=== PATIENT | male | born 1940 | race Hispanic/Latino ===

== ENCOUNTER 2024-07-16 18:50 | Inpatient (IN) | payer MEDICARE ==
[~2024-07-16] VITALS: Ht 170.2 cm; Wt 79.4 kg
[2024-07-16] MEDS ORDERED: SODIUM CHLORIDE FLUSH 10 ML SYR INJ PRN ×2 (19:30→21:15)
[2024-07-16 19:42] LABS: BASOPHILS # (AUTO) 0.1 (0.0-0.1); BASOPHILS % 0.5 % (0.0-1.0); EOSINOPHILS # (AUTO) 0.2 (0.0-0.4); EOSINOPHILS % 2.3 % (0.0-6.0); LYMPHOCYTES # (AUTO) 2.7 (1.0-3.2); LYMPHOCYTES % 28.5 % (18.0-39.1); MEAN CORPUSCULAR HEMOGLOBIN 32.8 pg (28-32); MEAN CORPUSCULAR HGB CONC 30.8 g/dL (31-35); MEAN CORPUSCULAR VOLUME 106.7 fL (81-99); MONOCYTES # (AUTO) 0.4 (0.2-0.8); MONOCYTES % 4.7 % (4.4-11.3); NEUTROPHILS # (AUTO) 5.9 (2.1-6.9); NEUTROPHILS % 62.8 % (38.7-80.0); PLATELET COUNT 214 x10e3/uL (140-360); RED BLOOD COUNT 1.95 x10e6/uL (4.3-5.7); RED CELL DISTRIBUTION WIDTH 15.6 % (11.7-14.4); WHITE BLOOD COUNT 9.41 x10e3/uL (4.8-10.8)
[2024-07-16 19:48] LABS: HEMOGLOBIN 6.4 g/dL (14.0-18.0)
[2024-07-16 19:49] LABS: HEMATOCRIT 20.8 % (38.2-49.6)
[2024-07-16 19:55] LABS: ANION GAP 13.3 mmol/L (8-16); BILIRUBIN,TOTAL 0.4 mg/dL (0.2-1.2); CALCIUM 8.8 mg/dL (8.4-10.2); CREATININE, SERUM 1.58 mg/dL (0.72-1.25); POTASSIUM 4.3 mmol/L (3.5-5.1); TOTAL PROTEIN 5.9 g/dL (6.5-8.1)
[2024-07-16] MEDS: SODIUM CHLORIDE 0.9% 1000ML 1,000 ML IV ONE (20:02)
[2024-07-16] MEDS: ONDANSETRON HCL INJ 2MG/ML 2ML 2 MG/ML VIAL IV STA (20:02)
[2024-07-16 20:07] LABS: INR 1.58; PARTIAL THROMBOPLASTIN TIME 34.4 seconds (23.8-35.5); PROTHROMBIN TIME 19.6 seconds (11.9-14.5)
[2024-07-16] MEDS ORDERED: DEXTROSE 50% SYRINGE 50 ML IV PRN (21:15)
[2024-07-16] MEDS ORDERED: ONDANSETRON HCL INJ 2MG/ML 2ML 2 MG/ML VIAL IV PRN (21:15)
[2024-07-16] MEDS: DIGOXIN INJ 0.25 MG/ML 2 ML AMP IV ONE (21:45)
[2024-07-16 22:07] LABS: BILIRUBIN,URINE NEGATIVE (NEGATIVE); CLARITY,URINE CLOUDY (CLEAR); COLOR,URINE YELLOW (YELLOW); GLUCOSE, URINE NEGATIVE (NEGATIVE); KETONES,URINE NEGATIVE (NEGATIVE); LEUKOCYTE ESTERASE ,URINE 1+ (NEGATIVE); NITRITE,URINE NEGATIVE (NEGATIVE); PH,URINE 5.5 (5 - 7); PROTEIN,URINE DIPSTICK NEGATIVE (NEGATIVE); URINE UROBILINOGEN 0.2 mg/dL (0.2 - 1); WBC,URINE (MAN) >50 /HPF (0-5)
[2024-07-16 22:08] LABS: BACTERIA,URINE MANY /HPF; EPITHELIAL CELLS,URINE FEW /LPF; RBC,URINE 0-5 /HPF (0-5); RENAL EPITHELIAL CELLS,URINE FEW
[2024-07-16] MEDS: SODIUM CHLORIDE 0.9% 250ML 250 ML IV ONE (22:15)
[2024-07-17] VITALS (11 sets, daily range): BP systolic 104–132; BP diastolic 74–76; PULSE 74–117; RESP 12–20; TEMP 97.7–98.6; O2SAT 97–100
[2024-07-17 09:02] LABS: BASOPHILS # (AUTO) 0.1 (0.0-0.1); BASOPHILS % 0.5 % (0.0-1.0); EOSINOPHILS # (AUTO) 0.3 (0.0-0.4); EOSINOPHILS % 2.8 % (0.0-6.0); HEMATOCRIT 26.6 % (38.2-49.6); HEMOGLOBIN 8.4 g/dL (14.0-18.0); LYMPHOCYTES # (AUTO) 2.2 (1.0-3.2); LYMPHOCYTES % 22.5 % (18.0-39.1); MEAN CORPUSCULAR HGB CONC 31.6 g/dL (31-35); MEAN CORPUSCULAR VOLUME 98.2 fL (81-99); MONOCYTES # (AUTO) 0.4 (0.2-0.8); MONOCYTES % 4.4 % (4.4-11.3); NEUTROPHILS # (AUTO) 6.7 (2.1-6.9); NEUTROPHILS % 68.2 % (38.7-80.0); PLATELET COUNT 146 x10e3/uL (140-360); RED BLOOD COUNT 2.71 x10e6/uL (4.3-5.7); RED CELL DISTRIBUTION WIDTH 19.1 % (11.7-14.4); WHITE BLOOD COUNT 9.85 x10e3/uL (4.8-10.8)
[2024-07-17 09:48] LABS: ALBUMIN 2.9 g/dL (3.5-5.0); ALBUMIN/GLOBULIN RATIO 1.1 (0.8-2.0); ANION GAP 12.4 mmol/L (8-16); CALCIUM 8.3 mg/dL (8.4-10.2); CREATININE, SERUM 1.1 mg/dL (0.72-1.25); POTASSIUM 4.4 mmol/L (3.5-5.1); TOTAL PROTEIN 5.6 g/dL (6.5-8.1)
[2024-07-17] MEDS ORDERED: METOPROLOL SUCC50 MG PO (10:34)
[2024-07-17] MEDS ORDERED: VITAMIN D250 MC1 PO (10:34)
[2024-07-17] MEDS ORDERED: ROSUVASTATIN CA20 MG PO (10:34)
[2024-07-17] MEDS ORDERED: DIGOXIN125 MCG PO (10:34)
[2024-07-17] MEDS ORDERED: FINASTERIDE5 MG PO (10:34)
[2024-07-17] MEDS ORDERED: ALLOPURINOL100 MG PO (10:34)
[2024-07-17] MEDS ORDERED: SOLIQUA 100 UNIT3 ML SQ (10:34)
[2024-07-17] MEDS ORDERED: XARELTO20 MG PO (10:34)
[2024-07-17] MEDS ORDERED: ICOSAPENT ETHYL1 GM PO (10:34)
[2024-07-17] MEDS ORDERED: FLOMAX0.4 MG PO (10:34)
[2024-07-17] MEDS ORDERED: DIOVAN160 MG PO (10:34)
[2024-07-17] MEDS: INSULIN REGULAR, HUMAN 100 UNIT/1 ML SQ SCH (11:30)
[2024-07-17] MEDS ORDERED: DEXTROSE 50% SYRINGE 50 ML IV PRN ×2 (12:30→14:00)
[2024-07-17] MEDS ORDERED: BENZONATATE 100 MG CAP PO PRN (12:30)
[2024-07-17] MEDS ORDERED: HYDRALAZINE HCL 20 MG/ML VIAL IV PRN (12:30)
[2024-07-17] MEDS ORDERED: LIDOCAINE 4% PATCH TP PRN (12:30)
[2024-07-17] MEDS ORDERED: DIPHENHYDRAMINE HCL 25 MG CAP PO PRN (12:30)
[2024-07-17] MEDS ORDERED: DOCUSATE SODIUM 100 MG CAP PO PRN (12:30)
[2024-07-17] MEDS ORDERED: POTASSIUM CHLORIDE 20 MEQ TAB CR PO PRN (12:30)
[2024-07-17] MEDS ORDERED: SIMETHICONE 80 MG CHEW PO PRN (12:30)
[2024-07-17] MEDS ORDERED: ALBUTEROL/IPRATROPIUM 3 ML NEB NEB PRN (12:30)
[2024-07-17] MEDS: INSULIN LISPRO 100 UNIT/1 ML 3ML VIAL SQ SCH (16:25)
[2024-07-17] MEDS ORDERED: MELATONIN 5 MG TABLET PO PRN (21:00)
[2024-07-17] MEDS: INSULIN GLARGINE 100 UNITS/ML VIAL SQ SCH (21:00)
[2024-07-17] MEDS ORDERED: NON-FORMULARY MEDICATION (Rosuvastatin Calcium 20 MG) PO SCH (21:00)
[2024-07-17] MEDS: CRESTOR 10MG PO SCH (21:02)
[2024-07-18] VITALS (11 sets, daily range): BP systolic 99–126; BP diastolic 48–69; PULSE 72–115; RESP 18–20; TEMP 97.3–98; O2SAT 98–100
[2024-07-18 06:42] LABS: BASOPHILS # (AUTO) 0.1 (0.0-0.1); BASOPHILS % 0.5 % (0.0-1.0); EOSINOPHILS # (AUTO) 0.2 (0.0-0.4); EOSINOPHILS % 2.3 % (0.0-6.0); HEMOGLOBIN 8.2 g/dL (14.0-18.0); LYMPHOCYTES # (AUTO) 1.8 (1.0-3.2); LYMPHOCYTES % 17.5 % (18.0-39.1); MEAN CORPUSCULAR HEMOGLOBIN 31.2 pg (28-32); MEAN CORPUSCULAR HGB CONC 31.5 g/dL (31-35); MEAN CORPUSCULAR VOLUME 98.9 fL (81-99); MONOCYTES # (AUTO) 0.6 (0.2-0.8); MONOCYTES % 5.5 % (4.4-11.3); NEUTROPHILS # (AUTO) 7.6 (2.1-6.9); NEUTROPHILS % 72.8 % (38.7-80.0); PLATELET COUNT 165 x10e3/uL (140-360); RED BLOOD COUNT 2.63 x10e6/uL (4.3-5.7); RED CELL DISTRIBUTION WIDTH 19.9 % (11.7-14.4); WHITE BLOOD COUNT 10.39 x10e3/uL (4.8-10.8)
[2024-07-18 07:01] LABS: ANION GAP 11.6 mmol/L (8-16); CALCIUM 8.5 mg/dL (8.4-10.2); CHOL/HDL RATIO 5.6 (3.9-4.7); CREATININE, SERUM 1.1 mg/dL (0.72-1.25); POTASSIUM 4.6 mmol/L (3.5-5.1)
[2024-07-18] MEDS ORDERED: PANTOPRAZOLE SOD 40 MG TABEC PO SCH (07:30)
[2024-07-18] MEDS: METOPROLOL SUCCINATE 50 MG TAB XL PO SCH (08:52)
[2024-07-18] MEDS: TAMSULOSIN HCL 0.4 MG CAP PO SCH (08:53)
[2024-07-18] MEDS: ALLOPURINOL 100 MG TAB PO SCH (08:53)
[2024-07-18] MEDS: VALSARTAN 160 MG TAB PO SCH (08:53)
[2024-07-18] MEDS: FINASTERIDE 5 MG TAB PO SCH (08:53)
[2024-07-18] MEDS: DIGOXIN 0.125 MG TAB PO SCH (08:53)
[2024-07-18] MEDS ORDERED: LIDOCAINE HCL 2% LOCAL INJ 5 ML SDV VIAL INJ ONE (12:38)
[2024-07-18] MEDS ORDERED: PROPOFOL IV EMULSION 10 MG/ML 20 ML VIAL ONE (12:38)
[2024-07-18] MEDS ORDERED: EPHEDRINE SULFATE INJ 50 MG/ML VIAL ONE (12:38)
[2024-07-19] VITALS (8 sets, daily range): BP systolic 100–116; BP diastolic 52–55; PULSE 79–112; RESP 16–21; TEMP 97.7–98.6; O2SAT 97–100
[2024-07-19 06:51] LABS: BASOPHILS % 0.5 % (0.0-1.0); EOSINOPHILS # (AUTO) 0.2 (0.0-0.4); EOSINOPHILS % 2.1 % (0.0-6.0); HEMATOCRIT 24.8 % (38.2-49.6); LYMPHOCYTES # (AUTO) 1.6 (1.0-3.2); LYMPHOCYTES % 18.8 % (18.0-39.1); MEAN CORPUSCULAR HEMOGLOBIN 31.3 pg (28-32); MEAN CORPUSCULAR HGB CONC 31.5 g/dL (31-35); MEAN CORPUSCULAR VOLUME 99.6 fL (81-99); MONOCYTES # (AUTO) 0.7 (0.2-0.8); MONOCYTES % 7.9 % (4.4-11.3); NEUTROPHILS % 69.1 % (38.7-80.0); PLATELET COUNT 172 x10e3/uL (140-360); RED BLOOD COUNT 2.49 x10e6/uL (4.3-5.7); RED CELL DISTRIBUTION WIDTH 19.7 % (11.7-14.4); WHITE BLOOD COUNT 8.63 x10e3/uL (4.8-10.8)
[2024-07-19 07:05] LABS: HEMOGLOBIN 7.8 g/dL (14.0-18.0)
[2024-07-19 07:26] LABS: ANION GAP 12.9 mmol/L (8-16); CALCIUM 8.3 mg/dL (8.4-10.2); CREATININE, SERUM 1.24 mg/dL (0.72-1.25); POTASSIUM 4.9 mmol/L (3.5-5.1)
[2024-07-19 07:46] LABS: FOLATE 9.2 ng/mL (7.0-15.4)
[2024-07-20] VITALS (11 sets, daily range): BP systolic 111–141; BP diastolic 50–60; PULSE 83–108; RESP 17–19; TEMP 98–99.1; O2SAT 93–100
[2024-07-20 06:38] LABS: HEMATOCRIT 24.8 % (38.2-49.6); HEMOGLOBIN 7.8 g/dL (14.0-18.0); MEAN CORPUSCULAR HEMOGLOBIN 31.7 pg (28-32); MEAN CORPUSCULAR HGB CONC 31.5 g/dL (31-35); MEAN CORPUSCULAR VOLUME 100.8 fL (81-99); RED BLOOD COUNT 2.46 x10e6/uL (4.3-5.7); WHITE BLOOD COUNT 7.96 x10e3/uL (4.8-10.8)
[2024-07-20 06:39] LABS: BASOPHILS % 0.1 % (0.0-1.0); EOSINOPHILS # (AUTO) 0.2 (0.0-0.4); EOSINOPHILS % 1.9 % (0.0-6.0); LYMPHOCYTES # (AUTO) 1.8 (1.0-3.2); MONOCYTES # (AUTO) 0.7 (0.2-0.8); MONOCYTES % 8.3 % (4.4-11.3); NEUTROPHILS # (AUTO) 5.3 (2.1-6.9); NEUTROPHILS % 66.2 % (38.7-80.0); PLATELET COUNT 171 x10e3/uL (140-360); RED CELL DISTRIBUTION WIDTH 19.1 % (11.7-14.4)
[2024-07-20 06:52] LABS: ANION GAP 12.3 mmol/L (8-16); CALCIUM 8.1 mg/dL (8.4-10.2); CREATININE, SERUM 1.23 mg/dL (0.72-1.25); POTASSIUM 4.3 mmol/L (3.5-5.1)
[2024-07-20] MEDS: CYANOCOBALAMIN INJ 1,000 MCG/ML VIAL IM ONE (08:10)
[2024-07-20] MEDS: SODIUM CHLORIDE 0.9% 100 ML ONE (08:41)
[2024-07-20] MEDS: CYANOCOBALAMIN INJ 1,000 MCG/ML VIAL IM SCH (08:53)
[2024-07-20] MEDS: ACETAMINOPHEN 325 MG TAB PO PRN (18:31)
[2024-07-21] VITALS (11 sets, daily range): BP systolic 99–129; BP diastolic 51–90; PULSE 79–106; RESP 16–20; TEMP 97.5–99.1; O2SAT 95–100
[2024-07-21] MEDS ORDERED: PANTOPRAZOLE SO40 MG PO (15:41)
[2024-07-21] MEDS ORDERED: SOLIQUA 100 UNIT3 ML SQ (15:42)
[2024-07-21] MEDS: PANTOPRAZOLE SOD 40 MG TABEC PO SCH (17:56)
[2024-07-22] VITALS (11 sets, daily range): BP systolic 104–155; BP diastolic 55–66; PULSE 75–101; RESP 17–22; TEMP 97.6–99.1; O2SAT 96–100
[2024-07-22 06:44] LABS: HEMATOCRIT 26.2 % (38.2-49.6); HEMOGLOBIN 8.1 g/dL (14.0-18.0)
[2024-07-22 07:24] LABS: ANION GAP 14.1 mmol/L (8-16); CALCIUM 8.1 mg/dL (8.4-10.2); CREATININE, SERUM 1.32 mg/dL (0.72-1.25); POTASSIUM 4.1 mmol/L (3.5-5.1)
[2024-07-23] VITALS: BP 139/60; PULSE 107; RESP 19; TEMP 98.1; O2SAT 100
[2024-07-23 04:00] VITALS: BP 127/76; PULSE 103; RESP 21; TEMP 100.2; O2SAT 99
[2024-07-23 06:09] VITALS: PULSE 82; RESP 21; O2SAT 95
[2024-07-23 08:00] VITALS: BP 117/72; PULSE 107; RESP 19; TEMP 98.2; O2SAT 100
[2024-07-23 08:22] VITALS: BP 117/72; PULSE 107; RESP 19; TEMP 98.2; O2SAT 100
[2024-07-23] MEDS: IRON SUCROSE 100 MG in SODIUM CHLORIDE 0.9% 100 ML IV SCH (10:37)
[2024-07-23 12:00] VITALS: BP 118/89; PULSE 108; RESP 18; TEMP 98.6; O2SAT 100
== END 2024-07-23 16:14 | disposition home or self-care (01) | DRG 811 ==
LOC: ER 18:56 → ERHOLD 21:11 → MED/SURG3 07-17 08:40
PROVIDERS: ADMIT Internal Medicine; ATTEND Internal Medicine
PROC: 30233N1 Transfusion of Nonautologous Red Blood Cells into Peripheral Vein, Percutaneous Approach (ICD-10-PCS; 2024-07-16)
PROC: 0DB78ZX Excision of Stomach, Pylorus, Via Natural or Artificial Opening Endoscopic, Diagnostic (ICD-10-PCS; 2024-07-18)
PROC: 0DB68ZX Excision of Stomach, Via Natural or Artificial Opening Endoscopic, Diagnostic (ICD-10-PCS; principal; 2024-07-18 15:12)
DX: D62 Acute posthemorrhagic anemia (principal); K26.4 Chronic or unspecified duodenal ulcer with hemorrhage; I48.20 Chronic atrial fibrillation, unspecified; N30.00 Acute cystitis without hematuria; Z16.12 Extended spectrum beta lactamase (ESBL) resistance; B96.1 Klebsiella pneumoniae [K. pneumoniae] as the cause of diseases classified elsewhere; I80.8 Phlebitis and thrombophlebitis of other sites; B96.20 Unspecified Escherichia coli [E. coli] as the cause of diseases classified elsewhere; E11.9 Type 2 diabetes mellitus without complications; I10 Essential (primary) hypertension; E78.5 Hyperlipidemia, unspecified; R53.81 Other malaise; R35.0 Frequency of micturition; Z79.01 Long term (current) use of anticoagulants; Z79.4 Long term (current) use of insulin; Z83.3 Family history of diabetes mellitus; Z82.49 Family history of ischemic heart disease and other diseases of the circulatory system
CPT/HCPCS: 36415; 43239; 70450; 71045; 80048; 80053; 80061; 80162; 81001; 82607; 82728; 82746; 82948; 83036; 84484; 85014; 85018; 85025; 85610; 85730; 86850; 86900; 86920; 87086; 87186; 88305; 88342; 93005; 93971; 94799; 99285; J0696; J1160; J1756; J1815; J2003; J2185; J2405; J2470; J3420; J7030; J7050; P9016